=== PATIENT | female | born 1950 | race Caucasian/White ===

== ENCOUNTER 2018-03-22 13:35 | Observation (INO) | payer MEDICARE, OTHER ==
[2018-03-22] MEDS ORDERED: Morphine 4 MG/ML Syringe IVPUSH ONE (13:46)
--- NOTE | 2018-03-22 14:03 | EDM.PDOC ---
ED HPI GENERAL MEDICAL PROBLEM - General Chief Complaint: Chest Pain Stated Complaint: CHEST PAIN Time Seen by Provider: 03/22/18 13:50 Source of Information: Reports: Patient History Limitations: Reports: No Limitations - History of Present Illness INITIAL COMMENTS - FREE TEXT/NARRATIVE: 67-year-old female with extensive cardio vascular history, previous MIs and stenting prevents with 12 hours of intermittent chest discomfort, worse over the last 3 hours. She took full dose aspirin, also a few nitroglycerin but did not get any relief. She has had this same pain many times and does not feel more nitroglycerin will help. The pain is in the left anterior chest, a pressure sensation without radiation, diaphoresis, dyspnea or nausea or vomiting. She is very stable. An EKG done on arrival to the emergency room shows no ST elevation. Onset: Sudden Duration: Hour(s): (3) Location: Reports: Chest Severity: Moderate Associated Symptoms: Reports: No Other Symptoms Chest Pain Score (Numeric/FACES): 5 headache Pain Score (Numeric/FACES): 6 - Related Data Allergies Allergy/AdvReac Type Severity Reaction Status Date / Time Penicillins Allergy Rash Verified 03/22/18 13:47 Home Meds: Home Meds Aspirin 81 mg PO DAILY 03/22/18 [History] Clopidogrel [Plavix] 75 mg PO DAILY 03/22/18 [History] Escitalopram [Lexapro] 20 mg PO DAILY 03/22/18 [History] Isosorbide Mononitrate [Imdur] 30 mg PO DAILY 03/22/18 [History] Levothyroxine 75 mcg PO DAILY 03/22/18 [History] Metoprolol Succinate [Toprol XL] 25 mg PO DAILY 03/22/18 [History] Multivitamin [Multivitamins] 1 cap PO ASDIRECTED 03/22/18 [History] Nitroglycerin [Nitrostat] 0.4 mg PO ASDIRECTED PRN 03/22/18 [History] Ubidecarenone [Co Q-10] 10 mg PO DAILY 03/22/18 [History] atorvaSTATin [Lipitor] 80 mg PO BEDTIME 03/22/18 [History] buPROPion [Wellbutrin] 150 mg PO BID 03/22/18 [History] Past Medical History Other Cardiovascular History: quadrupal bipass with stents [employer] History: Reports: Endocrine/Metabolic History: Reports: Hypothyroidism - Infectious Disease History Infectious Disease History: Reports: Chicken Pox, Measles, Mumps - Past Surgical History HEENT Surgical History: Reports: Adenoidectomy, Tonsillectomy Female Surgical History: Reports: Hysterectomy Musculoskeletal Surgical History: Reports: Shoulder Surgery Other Musculoskeletal Surgeries/Procedures:: elbow Social & Family History - Tobacco Use Smoking Status *Q: Never Smoker - Caffeine Use Caffeine Use: Reports: Soda - Recreational Drug Use Recreational Drug Use: No ED ROS GENERAL - Review of Systems Review Of Systems: See Below Constitutional: Denies: Fever, Chills, Malaise Respiratory: Denies: Shortness of Breath, Pleuritic Chest Pain Cardiovascular: Reports: Chest Pain, Dyspnea on Exertion GI/Abdominal: Denies: Abdominal Pain, Nausea, Vomiting Musculoskeletal: Reports: No Symptoms Skin: Reports: No Symptoms Neurological: Reports: No Symptoms Psychiatric: Reports: No Symptoms ED EXAM, GENERAL - Physical Exam Exam: See Below Exam Limited By: No Limitations General Appearance: Alert, No Apparent Distress Respiratory/Chest: No Respiratory Distress, Lungs Clear, Other (I could not reproduce any pain with palpation of the chest wall.) Cardiovascular: Regular Rate, Rhythm, No Murmur. No: Extra Beats GI/Abdominal: Soft, Non-Tender Extremities: Normal Inspection. No: Pedal Edema Neurological: Alert, Oriented Psychiatric: Normal Affect, Normal Mood Skin Exam: Warm, Dry Course - Vital Signs Last Recorded V/S: Last Vital Signs Temp 96.7 F 03/23/18 06:00 Pulse 59 L 03/22/18 21:30 Resp 17 03/23/18 06:00 BP 108/60 03/23/18 06:00 Pulse Ox 96 03/23/18 06:00 - Orders/Labs/Meds Orders: Active Orders 24 hr Category Date Time Status EKG 12 Lead [EK] Routine Ther 03/22/18 13:47 Stop Req Medication Orders Acetaminophen (Tylenol) 650 mg PO Q4H PRN PRN Reason: Pain (Mild 1-3)/fever Last Admin: 03/22/18 20:13 Dose: 650 mg Aspirin (Halfprin) 81 mg PO DAILY [facility] Atorvastatin Calcium (Lipitor) 80 mg PO BEDTIME [facility] Last Admin: 03/22/18 22:19 Dose: Not Given Bupropion HCl (Wellbutrin) 150 mg PO BID [facility] Last Admin: 03/22/18 22:19 Dose: Not Given Clopidogrel Bisulfate (Plavix) 75 mg PO DAILY [facility] Enoxaparin Sodium (Lovenox) 40 mg SUBCUT DAILY@1999 [facility] Escitalopram Oxalate (Lexapro) 20 mg PO DAILY [facility] Isosorbide Mononitrate (Imdur) 30 mg PO DAILY [facility] Levothyroxine Sodium (Levothyroxine) 75 mcg PO DAILY [facility] Metoprolol Succinate (Toprol Xl) 25 mg PO DAILY [facility] Morphine Sulfate (Morphine) 2 mg IVPUSH Q2H PRN PRN Reason: Pain (severe 7-10) Nitroglycerin (Nitrostat) 0.4 mg SL Q5M PRN PRN Reason: Chest Pain Stop: 03/23/18 17:25 Ondansetron HCl (Zofran) 4 mg IVPUSH Q4H PRN PRN Reason: Nausea/Vomiting Oxycodone HCl (Oxycodone) 5 mg PO Q4H PRN PRN Reason: Pain (moderate 4-6) Pantoprazole Sodium (Protonix) 40 mg PO DAILY@0730 [facility] Last Admin: 03/22/18 20:29 Dose: 40 mg Sodium Chloride (Saline Flush) 10 ml FLUSH ASDIRECTED PRN PRN Reason: Keep Vein Open Labs: Laboratory Tests 03/22/18 03/22/18 Range/Units 13:47 13:47 WBC 7.2 (4.5-11.0) K/uL RBC 3.84 (3.30-5.50) M/uL Hgb 12.8 (12.0-15.0) g/dL Hct 38.9 (36.0-48.0) % MCV 101 H (80-98) fL MCH 33 H (27-31) pg MCHC 33 (32-36) % Plt Count 247 (150-400) K/uL Neut % (Auto) 65 (36-66) % Lymph % (Auto) 23 L (24-44) % [place] % (Auto) 11 H (2-6) % Eos % (Auto) 1 L (2-4) % Baso % (Auto) 0 (0-1) % Sodium 139 L (140-148) mmol/L Potassium 4.1 (3.6-5.2) mmol/L Chloride 104 (100-108) mmol/L Carbon Dioxide 29 (21-32) mmol/L Anion Gap 10.1 (5.0-14.0) mmol/L BUN 30 H (7-18) mg/dL Creatinine 1.0 (0.6-1.0) mg/dL Est Cr Clr Drug Dosing 50.41 mL/min Estimated GFR (MDRD) 55 L (>60) Glucose 109 H (74-106) mg/dL Calcium 9.5 (8.5-10.1) mg/dL Troponin I < 0.017 (0.000-0.056) ng/mL Meds: Medications Generic Name Dose Route Start Last Admin Trade Name Freq PRN Reason Stop Dose Admin Acetaminophen 650 mg 03/22/18 19:05 03/22/18 20:13 Tylenol PO 650 mg Q4H PRN Administration Pain (Mild 1-3)/fever Aspirin 81 mg 03/23/18 09:00 Halfprin PO DAILY [facility] Atorvastatin Calcium 80 mg 03/22/18 21:00 03/22/18 22:19 Lipitor PO Not Given BEDTIME [facility] Bupropion HCl 150 mg 03/22/18 21:00 03/22/18 22:19 Wellbutrin PO Not Given BID [facility] Clopidogrel Bisulfate 75 mg 03/23/18 09:00 Plavix PO DAILY [facility] Enoxaparin Sodium 40 mg 03/23/18 20:00 Lovenox SUBCUT DAILY@1999 [facility] Escitalopram Oxalate 20 mg 03/23/18 09:00 Lexapro PO DAILY [facility] Isosorbide Mononitrate 30 mg 03/23/18 09:00 Imdur PO DAILY [facility] Levothyroxine Sodium 75 mcg 03/23/18 09:00 Levothyroxine PO DAILY [facility] Metoprolol Succinate 25 mg 03/23/18 09:00 Toprol Xl PO DAILY [facility] Morphine Sulfate 2 mg 03/22/18 19:05 Morphine IVPUSH Q2H PRN Pain (severe 7-10) Nitroglycerin 0.4 mg 03/22/18 19:05 Nitrostat SL 03/23/18 17:25 Q5M PRN Chest Pain Ondansetron HCl 4 mg 03/22/18 19:05 Zofran IVPUSH Q4H PRN Nausea/Vomiting Oxycodone HCl 5 mg 03/22/18 19:05 Oxycodone PO Q4H PRN Pain (moderate 4-6) Pantoprazole Sodium 40 mg 03/22/18 19:05 03/22/18 20:29 Protonix PO 40 mg DAILY@0730 [facility] Administration Sodium Chloride 10 ml 03/22/18 19:05 Saline Flush FLUSH ASDIRECTED PRN Keep Vein Open Discontinued Medications Generic Name Dose Route Start Last Admin Trade Name Romeo PRN Reason Stop Dose Admin Aspirin 81 mg 03/23/18 09:00 Aspirin PO DAILY [facility] Enoxaparin Sodium 40 mg 03/22/18 19:05 03/22/18 20:29 Lovenox SUBCUT 40 mg DAILY ALEXEY Administration Nitroglycerin/Dextrose 25 mg in 250 mls @ 6 mls/hr 03/22/18 14:45 03/22/18 15 :18 Nitroglycerin 25 Mg/D5w 250 Ml IV 20 mcg/min TITRATE ALEXEY 12 mls/hr Titration Protocol 10 MCG/MIN Morphine Sulfate 4 mg 03/22/18 13:46 03/22/18 14:03 Morphine IVPUSH 03/22/18 13:47 4 mg ONETIME ONE Administration - Re-Assessments/Exams Free Text/Narrative Re-Assessment/Exam: 03/22/18 14:02 Initial EKG shows sinus rhythm without ST elevation or depression. Patient was given 4 mg of IV morphine, CBC CMP and troponin were obtained. 03/22/18 14:36 White count hemoglobin were normal, troponin was 0, chemistry panel reassuring. Despite the 4 mg of morphine the patient still had persistent pressure in the left chest. Blood pressure was 127/67, so low-dose nitroglycerin drip was started. 03/22/18 15:20 Nitroglycerin did seem to relieve her pain somewhat but not eliminated. I discussed options with the patient including transfer, repeating a troponin in several hours or admitting and observing here and I think the most reasonable would be to observe here for the next 12 hours to 24 hours considering she is still having some pain, her EKG and troponin are negative. I discussed this with Dr. Jacobson he's can see the patient to evaluate for possible admission. Departure - Departure Time of Disposition: 19:04 Disposition: Admitted As Inpatient 65 Condition: Good Clinical Impression: Accelerating angina Coronary artery disease Qualifiers: Coronary Disease-Associated Artery/Lesion type: unspecified vessel or lesion type [place] vs. transplanted heart: [place] heart Associated angina: with other forms of angina Qualified Code(s): I25.118 - Atherosclerotic heart disease of [place] coronary artery with other forms of angina pectoris - Discharge Information - My Orders Last 24 Hours: My Active Orders 03/22/18 13:47 EKG 12 Lead [EK] Routine - Assessment/Plan Last 24 Hours: My Active Orders 03/22/18 13:47 EKG 12 Lead [EK] Routine
[2018-03-22] MEDS ORDERED: Nitroglycerin/D5W 25 MG/250 ML BOTTLE IV SCH (14:45)
--- NOTE | 2018-03-22 18:55 | PCM.HP ---
H&P History of Present Illness - General Date of Service: 03/22/18 Admit Problem/Dx: Admission Diagnosis/Problem Admission Diagnosis/Problem Chest pain Source of Information: Patient, Family, Provider, RN Notes Reviewed History Limitations: Reports: No Limitations - History of Present Illness Initial Comments - Free Text/Narative: This patient is a 67-year-old woman who is admitted through the emergency department for further evaluation and management of chest pain. She has a known history of coronary artery disease and is status post previous coronary artery bypass surgery as well as angioplasties with stent placement. Over the past 2 weeks is had episodes of chest pain, she describes this as a intense sharp stabbing pain that lasts only a few seconds. It has been occurring a few times a day and is been unrelated to activity, position, or eating. The pain does not radiate and she is noted no other precipitating or relieving factors. Last night while out for a walk and going up a hill she noted increased shortness of breath and fatigue that she does not usually experience. This morning noted onset of a sharp pain that was occurring several times in an hour over a period of a few hours. She presented to the emergency department for further evaluation. Pain has improved since she's been in the emergency department with IV nitroglycerin and narcotics. EKG shows no acute ST segment changes in her troponin was normal. Calculated HEART score is 5. Chest Pain Score (Numeric/FACES): 5 - Related Data Allergies/Adverse Reactions: Allergies Allergy/AdvReac Type Severity Reaction Status Date / Time Penicillins Allergy Rash Verified 03/22/18 13:47 Home Medications: Home Meds Aspirin 81 mg PO DAILY 03/22/18 [History] Clopidogrel [Plavix] 75 mg PO DAILY 03/22/18 [History] Escitalopram [Lexapro] 20 mg PO DAILY 03/22/18 [History] Isosorbide Mononitrate [Imdur] 30 mg PO DAILY 03/22/18 [History] Levothyroxine 75 mcg PO DAILY 03/22/18 [History] Metoprolol Succinate [Toprol XL] 25 mg PO DAILY 03/22/18 [History] Multivitamin [Multivitamins] 1 cap PO ASDIRECTED 03/22/18 [History] Nitroglycerin [Nitrostat] 0.4 mg PO ASDIRECTED PRN 03/22/18 [History] Ubidecarenone [Co Q-10] 10 mg PO DAILY 03/22/18 [History] atorvaSTATin [Lipitor] 80 mg PO BEDTIME 03/22/18 [History] buPROPion [Wellbutrin] 150 mg PO BID 03/22/18 [History] Past Medical History Other Cardiovascular History: quadrupal bipass with stents [employer] History: Reports: Endocrine/Metabolic History: Reports: Hypothyroidism - Infectious Disease History Infectious Disease History: Reports: Chicken Pox, Measles, Mumps - Past Surgical History HEENT Surgical History: Reports: Adenoidectomy, Tonsillectomy Female Surgical History: Reports: Hysterectomy Musculoskeletal Surgical History: Reports: Shoulder Surgery Other Musculoskeletal Surgeries/Procedures:: elbow Social & Family History - Tobacco Use Smoking Status *Q: Never Smoker - Caffeine Use Caffeine Use: Reports: Soda - Recreational Drug Use Recreational Drug Use: No H&P Review of Systems - Review of Systems: Review Of Systems: See Below General: Reports: Fatigue. Denies: Fever, Chills, Weakness HEENT: Reports: No Symptoms Pulmonary: Reports: Shortness of Breath. Denies: Wheezing, Pleuritic Chest Pain , Cough, Sputum, Hemoptysis Cardiovascular: Reports: Chest Pain. Denies: Palpitations, Dyspnea on Exertion , Orthopnea, PND, Edema, Lightheadedness Gastrointestinal: Reports: No Symptoms Genitourinary: Reports: No Symptoms Musculoskeletal: Reports: No Symptoms Skin: Reports: No Symptoms Psychiatric: Reports: No Symptoms Neurological: Reports: No Symptoms Hematologic/Lymphatic: Reports: No Symptoms Immunologic: Reports: No Symptoms Exam - Exam Exam: See Below - Vital Signs Vital Signs: Last Vital Signs Temp 97.1 F 03/22/18 13:49 Pulse 68 03/22/18 18:40 Resp 15 03/22/18 17:31 BP 115/58 L 03/22/18 18:40 Pulse Ox 98 03/22/18 17:31 Weight: 158 lb - Exam General: Alert, Oriented, Cooperative, Mild Distress HEENT: Conjunctiva Clear, Hearing Intact, Mucosa Moist & [place], Normal Nasal Septum, Posterior Pharynx Clear, Pupils Equal Neck: Supple, Trachea Midline, +2 Carotid Pulse wo Bruit Lungs: Clear to Auscultation, Normal Respiratory Effort Cardiovascular: Regular Rate, Regular Rhythm, Normal S1, Normal S2. No: Systolic Murmur, Diastolic Murmur GI/Abdominal Exam: Soft, Non-Tender, No Organomegaly, No Distention Back Exam: Normal Inspection, Full Range of Motion Extremities: Non-Tender, No Pedal Edema Skin: Warm, Dry Neurological: Cranial Nerves Intact, Strength Equal Bilateral, Normal Speech, Normal Tone, Sensation Intact. No: Focal Deficit Neuro Extensive - Mental Status: Alert, Oriented x3, Normal Mood/Affect, Normal Cognition, Memory Intact - Patient Data Lab Results Last 24 hrs: Laboratory Results - last 24 hr 03/22/18 03/22/18 Range/Units 13:47 13:47 WBC 7.2 (4.5-11.0) K/uL RBC 3.84 (3.30-5.50) M/uL Hgb 12.8 (12.0-15.0) g/dL Hct 38.9 (36.0-48.0) % MCV 101 H (80-98) fL MCH 33 H (27-31) pg MCHC 33 (32-36) % Plt Count 247 (150-400) K/uL Neut % (Auto) 65 (36-66) % Lymph % (Auto) 23 L (24-44) % [place] % (Auto) 11 H (2-6) % Eos % (Auto) 1 L (2-4) % Baso % (Auto) 0 (0-1) % Sodium 139 L (140-148) mmol/L Potassium 4.1 (3.6-5.2) mmol/L Chloride 104 (100-108) mmol/L Carbon Dioxide 29 (21-32) mmol/L Anion Gap 10.1 (5.0-14.0) mmol/L BUN 30 H (7-18) mg/dL Creatinine 1.0 (0.6-1.0) mg/dL Est Cr Clr Drug Dosing 50.41 mL/min Estimated GFR (MDRD) 55 L (>60) Glucose 109 H (74-106) mg/dL Calcium 9.5 (8.5-10.1) mg/dL Troponin I < 0.017 (0.000-0.056) ng/mL Result Diagrams: 03/22/18 13:47 03/22/18 13:47 *Q Meaningful Use (ADM) - VTE Risk Assess *Q Each Risk Factor Represents 1 Point: Obesity ( BMI > 25 kg/m2) Total Score 1 Point Risk Factors: 1 Each Risk Factor Represents 2 Points: Age 60 - 74 Years Total Score 2 Point Risk Factors: 2 Each Risk Factor Represents 3 Points: None Total Score 3 Point Risk Factors: 0 Each Risk Factor Represents 5 Points: None Total Score 5 Point Risk Factors: 0 Venous Thromboembolism Risk Factor Score *Q: 3 Problem List Initiated/Reviewed/Updated: Yes Orders Last 24hrs: Active Orders 24 hr Category Date Time Status Patient Status Manage Transfer [TRANSFER] Routine ADT 03/22/18 16:33 Active EKG Documentation Completion [RC] ASDIRECTED Care 03/22/18 13:47 Active Nitroglycerin/D5W [Nitroglycerin 25 MG/D5W 250 ML] Med 03/22/18 14:45 Active 25 mg in 250 ml IV TITRATE Resuscitation Status Routine Resus Stat 03/22/18 16:36 Ordered EKG 12 Lead [EK] Routine Ther 03/22/18 13:47 Ordered Medication Orders Nitroglycerin/Dextrose (Nitroglycerin 25 Mg/D5w 250 Ml) 25 mg in 250 mls @ 6 mls/hr IV TITRATE ALEXEY; Protocol Last Titration: 03/22/18 15:18 Dose: 20 mcg/min, 12 mls/hr Titration: 03/22/18 14:57 Dose: 15 mcg/min, 9 mls/hr Admin: 03/22/18 14:47 Dose: 10 mcg/min, 6 mls/hr Assessment/Plan Comment:: ASSESSMENT AND PLAN CHEST PAIN-somewhat atypical pain present over the past 2 weeks, much more frequent today. Pain has improved since she's been in the emergency department although not totally resolved. Initial EKG and troponin are unremarkable. She also is experienced recent symptoms of increased shortness of breath with decreased exercise tolerance. Calculated HEART score is 5. -Discontinue IV nitroglycerin -Observation admission -Serial troponin levels -Exercise Cardiolite study in a.m. -Protonix 40 mg by mouth daily HYPERTENSION -Continue outpatient medical regimen MAINTENANCE ISSUES -DVT prophylaxis; Lovenox 40 mg subcutaneous daily -GI prophylaxis; Protonix as above -Smiley catheter; not indicated -Nutrition; regular diet -Nicotine dependence; not required CODE STATUS-FULL CODE ADMISSION STATUS-this patient will be admitted to observation status, expect no more than a one night hospital stay for evaluation and management of problems as outlined above. DISPOSITION-anticipate discharge to home after the hospital stay. PRIMARY CARE PROVIDER-she is from the [facility] and receives her healthcare there
[2018-03-22] MEDS ORDERED: Morphine 2 MG/ML Syringe IVPUSH PRN (19:05)
[2018-03-22] MEDS ORDERED: Enoxaparin 40 MG/0.4 ML Syringe SUBCUT SCH (19:05)
[2018-03-22] MEDS ORDERED: oxyCODONE 5 MG Tab PO PRN (19:05)
[2018-03-22] MEDS ORDERED: Nitroglycerin 0.4 MG Tab.SL SL PRN (19:05)
[2018-03-22] MEDS ORDERED: Acetaminophen 325 MG Tab PO PRN (19:05)
[2018-03-22] MEDS ORDERED: Ondansetron 4 MG/2 ML SDV IVPUSH PRN (19:05)
[2018-03-22] MEDS ORDERED: Pantoprazole 40 MG Tab.CR PO SCH (19:05)
[2018-03-22] MEDS ORDERED: Sodium Chloride 0.9% 10 ML Syringe FLUSH PRN (19:05)
[2018-03-22] MEDS ORDERED: buPROPion 100 MG Tab PO SCH (21:00)
[2018-03-22] MEDS ORDERED: atorvaSTATin 20 MG Tab PO SCH (21:00)
[2018-03-23] MEDS ORDERED: Levothyroxine 75 MCG Tab PO SCH (07:30)
[2018-03-23] MEDS ORDERED: Isosorbide Mononitrate 30 MG Tab.ER PO SCH (07:30)
[2018-03-23] MEDS ORDERED: Metoprolol Succinate 25 MG Tab.ER PO SCH (09:00)
[2018-03-23] MEDS ORDERED: Clopidogrel 75 MG Tab PO SCH (09:00)
[2018-03-23] MEDS ORDERED: Aspirin 81 MG Tab.EC PO SCH (09:00)
[2018-03-23] MEDS ORDERED: Escitalopram 20 MG Tab PO SCH (09:00)
[2018-03-23] MEDS ORDERED: Aspirin 81 MG Tab.Chew PO SCH (09:00)
--- NOTE | 2018-03-23 12:24 | STRESS ---
DATE OF SERVICE: 03/23/2018 PROCEDURE PERFORMED: Exercise Cardiolite study. TECHNIQUE: Ms. Lin was exercised for 9 minutes 21 seconds on the Jayesh protocol for the exercise portion of exercise Cardiolite study. She completed 21 seconds of stage IV at 4.2 miles/hour and 16 degrees elevation. She experienced symptoms of shortness of breath, but denies chest pain or pressure. She was able to reach a rate pressure product of 17,900 and a workload of 10.1 METS. Resting heart rate was 67 and went to 112 with exercise. This did not reach 85% of predicted maximal heart rate of 129, but did reach a maximal predicted heart rate of 74%. Resting blood pressure was 115/74 and went to 160/82 with exercise. Resting ECG, sinus bradycardia, rate of 55, normal axis and intervals, otherwise normal appearing EKG, no significant changes were seen on the post hyperventilation or standing ECGs. There were no significant ST-segment changes, T-wave abnormalities seen with exercise or in the post exercise. She experienced symptoms of shortness of breath, but had no chest pain or pressure. No significant dysrhythmias were noted during the monitoring. IMPRESSION: Negative treadmill exercise portion of exercise Cardiolite study with adequate level of exercise. She was only able to reach 74% of predicted maximal heart rate with this level of exercise. Interpretation of the Cardiolite portion of the study is pending at this time. Roni Jacobson MD /[id number]
--- NOTE | 2018-03-23 12:56 | NM ---
Myocardial Perf Spect Multi INDICATION: Chest pain COMPARISON: None. TECHNIQUE: Nuclear medicine myocardial perfusion scan was performed after IV administration of 10.2 millicuries uptake technetium 99m Myoview at rest and 28.4 millicuries of technetium 99m at stress ( 9 minutes 21 seconds. Maximum heart rate was 112. Heart rate was 129.). FINDINGS: Myocardial perfusion: There is a perfusion defect. Towards the apex involving the anterior septal a nd inferior lateral portion. The this is somewhat diminished in the anterior septal portion on the re st images. Wall motion: Normal wall motion. LVEF stress: 64 % LVEF rest: 67 % Other findings: None. IMPRESSION: There is a perfusion defect in the apical portion of the left ventricle. Most of this is similar on stress and rest images. The there is some relative increased perfusion in the apical an terior septal portion. This may all be artifact but some reversible ischemia in the apical portion th e anterior septal wall is not excluded Ejection fraction was normal but somewhat less on stress than rest images
--- NOTE | 2018-03-23 13:28 | PCM.DCSUM1 ---
Discharge Summary - Hospital Course Brief History: Ms. Lin is a 67-year-old woman who was admitted through the emergency department to observation status for further evaluation and management of chest pain. Diagnosis: Stroke: No - Discharge Data Discharge Date: 03/23/18 Discharge Disposition: Home, Self-Care 01 Condition: Fair - Discharge Diagnosis/Problem(s) (1) Chest pain SNOMED Code(s): 70467438 ICD Code: R07.9 - CHEST PAIN, UNSPECIFIED Status: Acute Current Visit: Yes (2) Coronary artery disease SNOMED Code(s): 55475408 ICD Code: I25.10 - ATHSCL HEART DISEASE OF [place] CORONARY ARTERY W/O ANG PCTRS Status: Acute Current Visit: Yes Qualifiers: Coronary Disease-Associated Artery/Lesion type: unspecified vessel or lesion type [place] vs. transplanted heart: [place] heart Associated angina: with other forms of angina Qualified Code(s): I25.118 - Atherosclerotic heart disease of [place] coronary artery with other forms of angina pectoris - Patient Summary/Data Hospital Course: This patient is a 67-year-old woman who was admitted through the emergency department, to observation status, for further evaluation and management of chest pain. She has a known history of coronary artery disease and is status post previous coronary artery bypass surgery as well as angioplasties with stent placement. Over the past 2 weeks she has had episodes of chest pain, she describes this as a intense sharp stabbing pain that lasts only a few seconds. It has been occurring a few times a day and is been unrelated to activity, position, or eating. The pain does not radiate and she is noted no other precipitating or relieving factors. Last night while out for a walk and going up a hill she noted increased shortness of breath and fatigue that she does not usually experience. This morning noted onset of the sharp pain that was occurring several times in an hour over a period of a few hours. She presented to the emergency department for further evaluation. Pain has improved since she' s been in the emergency department with IV nitroglycerin and narcotics. EKG shows no acute ST segment changes and her troponin level was normal. Calculated HEART score is 5. She was admitted to the hospital, to observation status. Serial troponin levels were all within normal range and she had no further episodes of chest pain or pressure. Cardiac monitoring showed no significant dysrhythmias during her hospital stay. On the morning of discharge she underwent an exercise Cardiolite study. She was able to go 9-1/2 minutes on the Jayesh protocol with no significant ST segment changes or T-wave abnormalities noted during the exercise portion. She is bradycardic at rest and was unable to get her heart rate up to 85% of predicted maximal heart rate but did get to 74%. She had no symptoms of chest pain or pressure with exercise. Cardiolite portion the study shows possible small area of ischemia and a slight decrease in left ventricular function with exercise. She or he has appointment scheduled for follow up with cardiology and I believe that it safe for her to be discharged today with that follow-up in place. Copies of the EKG tracings as well as the Cardiolite study will be sent with her for review by cardiology. I've encouraged her to remain relatively sedentary until she is seen for follow-up by cardiology and certainly return to immediately to an emergency room if she has recurrent episode of chest pain. Activity will otherwise be as tolerated and she will resume her usual diet. She will schedule a follow-up appointment with her primary care provider within one week. 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 - Discharge Plan Home Medications: Home Meds Aspirin 81 mg PO DAILY 03/22/18 [History] Clopidogrel [Plavix] 75 mg PO DAILY 03/22/18 [History] Escitalopram [Lexapro] 20 mg PO DAILY 03/22/18 [History] Isosorbide Mononitrate [Imdur] 30 mg PO DAILY 03/22/18 [History] Levothyroxine 75 mcg PO DAILY 03/22/18 [History] Metoprolol Succinate [Toprol XL] 25 mg PO DAILY 03/22/18 [History] Multivitamin [Multivitamins] 1 cap PO ASDIRECTED 03/22/18 [History] Nitroglycerin [Nitrostat] 0.4 mg PO ASDIRECTED PRN 03/22/18 [History] Ubidecarenone [Co Q-10] 10 mg PO DAILY 03/22/18 [History] atorvaSTATin [Lipitor] 80 mg PO BEDTIME 03/22/18 [History] buPROPion [Wellbutrin] 150 mg PO BID 03/22/18 [History] Referrals: PCP,None [Primary Care Provider] - - Discharge Summary/Plan Comment DC Time >30 min.: No - Patient Data Vitals - Most Recent: Last Vital Signs Temp 97.0 F 03/23/18 12:00 Pulse 56 L 03/23/18 12:00 Resp 15 03/23/18 12:00 BP 131/58 L 03/23/18 12:00 Pulse Ox 95 03/23/18 12:00 Weight - Most Recent: 158 lb 0.014 oz I&O - Last 24 hours: Intake & Output 03/22/18 03/23/18 03/23/18 22:59 06:59 14:59 Intake Total 240 Output Total 300 500 700 Balance -300 -500 -460 Lab Results - Last 24 hrs: Laboratory Results - last 24 hr 03/22/18 03/22/18 03/22/18 Range/Units 13:47 13:47 19:05 WBC 7.2 (4.5-11.0) K/uL RBC 3.84 (3.30-5.50) M/uL Hgb 12.8 (12.0-15.0) g/dL Hct 38.9 (36.0-48.0) % MCV 101 H (80-98) fL MCH 33 H (27-31) pg MCHC 33 (32-36) % Plt Count 247 (150-400) K/uL Neut % (Auto) 65 (36-66) % Lymph % (Auto) 23 L (24-44) % Clarke % (Auto) 11 H (2-6) % Eos % (Auto) 1 L (2-4) % Baso % (Auto) 0 (0-1) % Sodium 139 L (140-148) mmol/L Potassium 4.1 (3.6-5.2) mmol/L Chloride 104 (100-108) mmol/L Carbon Dioxide 29 (21-32) mmol/L Anion Gap 10.1 (5.0-14.0) mmol/L BUN 30 H (7-18) mg/dL Creatinine 1.0 (0.6-1.0) mg/dL Est Cr Clr Drug Dosing 50.41 mL/min Estimated GFR (MDRD) 55 L (>60) Glucose 109 H (74-106) mg/dL Calcium 9.5 (8.5-10.1) mg/dL Troponin I < 0.017 < 0.017 (0.000-0.056) ng/mL 03/23/18 03/23/18 Range/Units 00:11 05:25 WBC (4.5-11.0) K/uL RBC (3.30-5.50) M/uL Hgb (12.0-15.0) g/dL Hct (36.0-48.0) % MCV (80-98) fL MCH (27-31) pg MCHC (32-36) % Plt Count (150-400) K/uL Neut % (Auto) (36-66) % Lymph % (Auto) (24-44) % Clarke % (Auto) (2-6) % Eos % (Auto) (2-4) % Baso % (Auto) (0-1) % Sodium (140-148) mmol/L Potassium (3.6-5.2) mmol/L Chloride (100-108) mmol/L Carbon Dioxide (21-32) mmol/L Anion Gap (5.0-14.0) mmol/L BUN (7-18) mg/dL Creatinine (0.6-1.0) mg/dL Est Cr Clr Drug Dosing mL/min Estimated GFR (MDRD) (>60) Glucose (74-106) mg/dL Calcium (8.5-10.1) mg/dL Troponin I < 0.017 < 0.017 (0.000-0.056) ng/mL Med Orders - Current: Current Medications Acetaminophen (Tylenol) 650 mg PO Q4H PRN PRN Reason: Pain (Mild 1-3)/fever Last Admin: 03/22/18 20:13 Dose: 650 mg Aspirin (Halfprin) 81 mg PO DAILY [facility] Atorvastatin Calcium (Lipitor) 80 mg PO BEDTIME [facility] Last Admin: 03/22/18 22:19 Dose: Not Given Bupropion HCl (Wellbutrin) 150 mg PO BID [facility] Clopidogrel Bisulfate (Plavix) 75 mg PO DAILY [facility] Enoxaparin Sodium (Lovenox) 40 mg SUBCUT DAILY@1999 [facility] Escitalopram Oxalate (Lexapro) 20 mg PO DAILY [facility] Isosorbide Mononitrate (Imdur) 30 mg PO DAILY@0730 [facility] Levothyroxine Sodium (Levothyroxine) 75 mcg PO DAILY@0730 [facility] Metoprolol Succinate (Toprol Xl) 25 mg PO DAILY [facility] Morphine Sulfate (Morphine) 2 mg IVPUSH Q2H PRN PRN Reason: Pain (severe 7-10) Nitroglycerin (Nitrostat) 0.4 mg SL Q5M PRN PRN Reason: Chest Pain Stop: 03/23/18 17:25 Ondansetron HCl (Zofran) 4 mg IVPUSH Q4H PRN PRN Reason: Nausea/Vomiting Oxycodone HCl (Oxycodone) 5 mg PO Q4H PRN PRN Reason: Pain (moderate 4-6) Pantoprazole Sodium (Protonix) 40 mg PO DAILY@0730 [facility] Last Admin: 03/22/18 20:29 Dose: 40 mg Sodium Chloride (Saline Flush) 10 ml FLUSH ASDIRECTED PRN PRN Reason: Keep Vein Open Discontinued Medications Aspirin (Aspirin) 81 mg PO DAILY [facility] Bupropion HCl (Wellbutrin) 150 mg PO BID [facility] Last Admin: 03/22/18 22:19 Dose: Not Given Enoxaparin Sodium (Lovenox) 40 mg SUBCUT DAILY [facility] Last Admin: 03/22/18 20:29 Dose: 40 mg Nitroglycerin/Dextrose (Nitroglycerin 25 Mg/D5w 250 Ml) 25 mg in 250 mls @ 6 mls/hr IV TITRATE [facility]; Protocol Last Titration: 03/22/18 15:18 Dose: 20 mcg/min, 12 mls/hr Morphine Sulfate (Morphine) 4 mg IVPUSH ONETIME ONE Stop: 03/22/18 13:47 Last Admin: 03/22/18 14:03 Dose: 4 mg - Exam General: Reports: Alert, Oriented, Cooperative, No Acute Distress Lungs: Reports: Clear to Auscultation, Normal Respiratory Effort Cardiovascular: Reports: Regular Rate, Regular Rhythm, No Murmurs GI/Abdominal Exam: Soft, Non-Tender, No Organomegaly, No Distention
[2018-03-23] MEDS ORDERED: Enoxaparin 40 MG/0.4 ML Syringe SUBCUT SCH (20:00)
== END 2018-03-23 14:50 | disposition home or self-care (01) ==
LOC: JP.ED 13:35 → JP.ICU 16:33
PROVIDERS: ADMIT Hospitalist; ATTEND Hospitalist
DX: I25.118 Atherosclerotic heart disease of native coronary artery with other forms of angina pectoris (principal); E03.9 Hypothyroidism, unspecified; E66.9 Obesity, unspecified; I10 Essential (primary) hypertension; Z88.0 Allergy status to penicillin; Z95.5 Presence of coronary angioplasty implant and graft; Z95.1 Presence of aortocoronary bypass graft; Z79.82 Long term (current) use of aspirin; Z79.899 Other long term (current) drug therapy
CPT/HCPCS: 36415; 78452; 80048; 84484; 85025; 93005; 96365; 96366; 96375; 99285; A9270; A9500; J1650; J2270